=== PATIENT | male | born 1960 | race Caucasian/White ===

== ENCOUNTER 2017-02-11 17:36 | Inpatient (IN) | payer OTHER ==
[~2017-02-11] VITALS: Ht 152.4 cm; Wt 105.2 kg
[~2017-02-11 17:36] MED LIST: ACETAMINOPHEN325 M1 PO; ADVAIR HFA120 INHALA IH; ALBUTEROL0.63 MG/3 IH; ANTI-FUNGAL71 GM TP; ARGLAES POWDER10 GM TP; ASPIR 8181 M1 PO; ASPIRIN81 M2 PO; ATIVAN INTE2 MG/1 ML PO; ATIVAN0.5 MG PO; ATIVAN1 MG PO; ATROVENT 00.5 MG/2.5 PO; Advair 250/50 Diskus IH; Advair HFA 115/21 IH; Ancef,Kefzol IV; Aspirin Chewable PO; BISAC-EVAC10 MG PR; CELEXA20 MG PO; CHILD ASPIRIN81 M1 PO; CITALOPRAM HBR20 MG PO; CLONAZEPAM1 MG PO; CYANOCOBAL1000 MCG/2 IM; CYMBALTA30 MG PO; Cymbalta PO; DELTASONE20 M1 PO; DEPAKOTE ER500 MG PO; DEPAKOTE SPRIN125 MG PO; DEPAKOTE125 MG PO; DEPAKOTE500 MG PO; DIAMOX250 MG PO; DOXYCYCLINE HY100 M3 PO; DULCOLAX10 MG PR; DUONEB 2.5-0.5 M3 ML AEROSOL; DUONEB 2.5-0.5 M3 ML IH; DURAGESIC100 MCG TD; DURAGESIC50 MCG TD; Depakote PO; DuoNeb IH; Duragesic TD; FEOSOL325 MG PO; FERROUS SULFAT325 MG PO; FEVERALL650 M1 PR; FLEET ENEMA EX230 ML PR; FLEET ENEMA-AD118 ML PR; FLORASTOR250 MG PO; FUROSEMIDE40 MG PO; Feosol PO; GABAPENTIN100 MG PO; GABAPENTIN300 MG PO; HYOSCYAMINE0.125 M1 PO; HYOSCYAMINE0.125 MG PO; Haldol PO; IPRATR-ALBUTEROL3 ML IH; IPRATROPIU0.2 MG/1 M IH; IRON325 M1 PO; K-DUR20 MEQ PO; KENALOG,ARISTOC15 GM TP; KETOCONAZOLE60 GM TP; KLONOPIN PO; KLONOPIN0.5 M1 PO; KLONOPIN1 MG PO; KLOR-CON M2020 MEQ PO; Keflex PO; KlonoPIN PO; LACTINEX CHEWA1 EACH PO; LASIX20 MG PO; LASIX40 MG PO; LEVAQUIN500 MG PO; LEVAQUIN750 MG PO; LEVOFLOXACIN750 MG PO; LO-DOSE ASPIRIN81 M1 PO; LORAZEPAM0.5 MG PO; LOW DOSE ASPIRI81 M1 PO; LYRICA100 MG PO; MELATIN3 MG PO; MELATONIN3 MG PO; METOLAZONE2.5 MG PO; MILK OF MAGN PO; MILK OF MAGNESI10 ML PO; MIRALAX17 GM PO; MIRALAX255 GM PO; MORPHINE CON20 MG/M1 PO; MULTIVITAMIN1 EAC2 PO; Milk Of Magnesia,MOM PO; NIZORAL 2% CREA15 GM TP; OXYCODONE HCL E20 MG PO; OXYCODONE HCL10 MG PO; OXYCODONE HCL5 M1 PO; OXYCODONE HCL5 MG PO; OXYCONTIN10 MG PO; Omnicef PO; OxyCODONE PO; PHILLIPS'400 MG/5 M PO; POLYETHYLENE GL17 GM PO; POTASSIUM CHLO10 ME3 PO; PREDNISONE10 M1 PO; PREDNISONE10 MG PO; PREDNISONE20 MG PO; PREDNISONE5 MG PO; PROMETHAZINE HC25 M1 PO; PROVENTIL,2.5 MG/3 M IH; RISPERDAL1 MG PO; RISPERDAL2 MG PO; ROXICODONE5 MG PO; SAFE WASH210 ML MC; SENNA-GEN8.6 MG PO; SENNA8.6 MG PO; SEROQUEL12.5 MG PO; SEROQUEL50 MG PO; SPIRIVA1 INHALATI IH; SPIRONOLACTONE50 MG PO; STAVZOR500 MG PO; Santyl TP; TRAMADOL HCL50 MG PO; TYLENOL REGULA325 MG PO; Tylenol Extra Streng PO; ULTRAM50 MG PO; Ultram PO; VITAMIN D-32000 UNI1 PO; VITAMIN D1000 UNIT PO; Xopenex IH; predniSONE PO; risperDAL PO
[2017-02-11] MEDS ORDERED: CITALOPRAM HBR20 MG PO (18:00)
[2017-02-11] MEDS ORDERED: SEROQUEL50 MG PO (18:03)
[2017-02-11] MEDS ORDERED: KLOR-CON M2020 MEQ PO (18:04)
[2017-02-11] MEDS ORDERED: ARTIFICIAL TEAR15 M1 BOTH EYES ×2 (18:04→21:52)
[2017-02-11 18:23] LABS: EOSINOPHIL (%) 3.5 % (0-5); EOSINOPHIL COUNT 0.3 K/uL (0-0.3); HEMATOCRIT 41.9 % (38.0-50.0); IMMATURE GRANULOCYTE (%) 0.7 % (0.0-0.7); IMMATURE GRANULOCYTE COUNT 0.1 K/uL; LYMPHOCYTE COUNT 1.5 K/uL (1.0-2.8); MCH 25.3 PG (29.0-34.0); MCHC 28.4 G/DL (30.0-36.0); MONOCYTE (%) 7.3 % (3-12); MONOCYTE COUNT 0.7 K/uL (0-0.8); NEUTROPHIL (%) 72.2 % (45-76); PLATELET COUNT 291 K/uL (156-360); RBC DIS.WIDTH-CV 14.9 % (11.8-14.6); RED BLOOD COUNT 4.71 M/uL (4.00-5.50); WHITE BLOOD COUNT 9.7 K/uL (4.1-10.2)
[2017-02-11 18:31] LABS: CHLORIDE 84 mEq/L (99-109); POTASSIUM 3.9 mEq/L (3.7-5.4); SODIUM 141 mEq/L (136-147)
[2017-02-11 18:33] LABS: GLUCOSE 100 mg/dL (70-99)
[2017-02-11 18:35] LABS: TOTAL BILIRUBIN 0.2 mg/dL (0.0-1.0)
[2017-02-11 18:37] LABS: ALKALINE PHOSPHATASE 121 IU/L (3-129); GFR ESTIMATE (CALCULATED) > 59 mL/min/
[2017-02-11 18:38] LABS: UREA NITROGEN (BUN) 13 mg/dL (9-23)
[2017-02-11 18:44] LABS: TROP-I INTERPRETATION NEGATIVE; TROPONIN-I < 0.01 ng/mL (0.0-0.30)
[2017-02-11 19:00] LABS: CARBOXY HGB 1.8 % (0-5); METHEMOGLOBIN 0.9 % (0-1.5); PO2 73 mm Hg (80-100)
[2017-02-11 19:01] LABS: COMMENTS - BLOOD GASES C+; DEVICE VENTI-MASK; FI02 50 %; PCO2 > 123 mm Hg (35-45); SITE RR; pH 7.25 (7.35-7.45)
[2017-02-11 19:04] LABS: CARBON DIOXIDE (BICARBONATE) > 40.0 mEq/L (20-31)
[2017-02-11 21:35] VITALS: BP 136/84
[2017-02-11] MEDS ORDERED: FUROSEMIDE40 MG PO (21:46)
[2017-02-11] MEDS ORDERED: ATIVAN1 MG PO (21:47)
[2017-02-11] MEDS ORDERED: MORPHINE SULFAT15 M1 PO (21:49)
[2017-02-11] MEDS ORDERED: SENNA8.6 MG PO (21:52)
[2017-02-11] MEDS ORDERED: FLEET ENEMA-AD118 ML PR (22:00)
[2017-02-11] MEDS ORDERED: MILK OF MAGN PO (22:01)
[2017-02-11 23:30] VITALS: BP 120/60
[2017-02-12 04:15] VITALS: BP 138/87
[2017-02-12 07:18] LABS: EOSINOPHIL (%) 0 % (0-5); HEMATOCRIT 40.5 % (38.0-50.0); IMMATURE GRANULOCYTE (%) 1.1 % (0.0-0.7); IMMATURE GRANULOCYTE COUNT 0.1 K/uL; INSTRUMENT ABS NEUTROPHIL CT 9.4 K/uL; LYMPHOCYTE COUNT 0.7 K/uL (1.0-2.8); MCH 25.5 PG (29.0-34.0); MCHC 28.9 G/DL (30.0-36.0); MCV 88.2 FL (86-99); MEAN PLAT.VOLUME 11.7 uM^3 (9.0-12.4); MONOCYTE (%) 0.7 % (3-12); MONOCYTE COUNT 0.1 K/uL (0-0.8); NEUTROPHIL (%) 91.1 % (45-76); NEUTROPHIL COUNT 9.4 K/uL (1.8-6.4); PLATELET COUNT 257 K/uL (156-360); RBC DIS.WIDTH-CV 15.2 % (11.8-14.6); RBC DIS.WIDTH-SD 48.7 % (39-53); RED BLOOD COUNT 4.59 M/uL (4.00-5.50); WHITE BLOOD COUNT 10.3 K/uL (4.1-10.2)
[2017-02-12 07:30] VITALS: BP 143/88
[2017-02-12 07:32] LABS: ANION GAP ND MEQ/L (2-14); CHLORIDE 89 MEQ/L (99-109); GFR ESTIMATE (CALCULATED) > 59 mL/min/; GLUCOSE 146 mg/dL (70-99); SAMPLE HEMOLYSIS CHECK 0; SAMPLE ICTERIC CHECK 0; SAMPLE LIPEMIA CHECK 0; SODIUM 139 MEQ/L (136-147); UREA NITROGEN (BUN) 14 mg/dL (9-23)
[2017-02-12 07:38] LABS: CARBON DIOXIDE (BICARBONATE) > 40.0 MEQ/L (20-31); POTASSIUM 4.8 MEQ/L (3.7-5.4)
[2017-02-12 12:37] VITALS: BP 109/71
[2017-02-12 16:00] VITALS: BP 105/56
[2017-02-12 19:22] VITALS: BP 160/70
[2017-02-12 22:51] VITALS: BP 144/75
[2017-02-13 04:01] VITALS: BP 125/70
[2017-02-13 08:25] VITALS: BP 112/63
[2017-02-13 11:55] VITALS: BP 114/70
[2017-02-13 14:45] VITALS: BP 108/88
[2017-02-13 19:20] VITALS: BP 114/57
[2017-02-14 04:10] VITALS: BP 130/77
[2017-02-14 06:19] LABS: EOSINOPHIL (%) 0 % (0-5); HEMATOCRIT 36.5 % (38.0-50.0); IMMATURE GRANULOCYTE (%) 0.8 % (0.0-0.7); IMMATURE GRANULOCYTE COUNT 0.1 K/uL; INSTRUMENT ABS NEUTROPHIL CT 9.2 K/uL; LYMPHOCYTE COUNT 0.6 K/uL (1.0-2.8); MCH 25.3 PG (29.0-34.0); MCHC 28.8 G/DL (30.0-36.0); MEAN PLAT.VOLUME 10.9 uM^3 (9.0-12.4); MONOCYTE (%) 4.7 % (3-12); MONOCYTE COUNT 0.5 K/uL (0-0.8); NEUTROPHIL (%) 88.3 % (45-76); NEUTROPHIL COUNT 9.2 K/uL (1.8-6.4); PLATELET COUNT 266 K/uL (156-360); RBC DIS.WIDTH-CV 15.9 % (11.8-14.6); RBC DIS.WIDTH-SD 50.5 % (39-53); RED BLOOD COUNT 4.15 M/uL (4.00-5.50); WHITE BLOOD COUNT 10.4 K/uL (4.1-10.2)
[2017-02-14 06:56] LABS: ANION GAP ND MEQ/L (2-14); CHLORIDE 94 MEQ/L (99-109); GFR ESTIMATE (CALCULATED) > 59 mL/min/; GLUCOSE 163 mg/dL (70-99); POTASSIUM 4.7 MEQ/L (3.7-5.4); SAMPLE HEMOLYSIS CHECK 0; SAMPLE ICTERIC CHECK 0; SAMPLE LIPEMIA CHECK 0; SODIUM 139 MEQ/L (136-147); UREA NITROGEN (BUN) 20 mg/dL (9-23)
[2017-02-14 07:00] LABS: CARBON DIOXIDE (BICARBONATE) > 40.0 MEQ/L (20-31)
[2017-02-14 08:09] VITALS: BP 131/78
[2017-02-14 12:17] VITALS: BP 141/82
[2017-02-14 15:26] LABS: METH RESISTANT S AUREUS PCR NEGATIVE (NEGATIVE)
[2017-02-14 15:36] LABS: PROBE CHECK PASS; SPECIMEN PROCESSING CONTROL PASS
[2017-02-14 19:30] VITALS: BP 138/78
[2017-02-14 23:20] VITALS: BP 130/72
[2017-02-15 03:40] VITALS: BP 160/82
[2017-02-15 08:00] VITALS: BP 142/81
[2017-02-15 08:43] LABS: EOSINOPHIL (%) 0 % (0-5); HEMATOCRIT 38.7 % (38.0-50.0); IMMATURE GRANULOCYTE (%) 1.1 % (0.0-0.7); IMMATURE GRANULOCYTE COUNT 0.1 K/uL; INSTRUMENT ABS NEUTROPHIL CT 8.2 K/uL; LYMPHOCYTE COUNT 0.6 K/uL (1.0-2.8); MCH 24.9 PG (29.0-34.0); MCHC 28.7 G/DL (30.0-36.0); MCV 86.8 FL (86-99); MEAN PLAT.VOLUME 10.6 uM^3 (9.0-12.4); MONOCYTE (%) 6.4 % (3-12); MONOCYTE COUNT 0.6 K/uL (0-0.8); NEUTROPHIL (%) 85.9 % (45-76); NEUTROPHIL COUNT 8.2 K/uL (1.8-6.4); PLATELET COUNT 261 K/uL (156-360); RBC DIS.WIDTH-CV 15.8 % (11.8-14.6); RBC DIS.WIDTH-SD 49.7 % (39-53); RED BLOOD COUNT 4.46 M/uL (4.00-5.50); WHITE BLOOD COUNT 9.6 K/uL (4.1-10.2)
[2017-02-15 09:31] LABS: ANION GAP 4 MEQ/L (2-14); CHLORIDE 97 MEQ/L (99-109); GFR ESTIMATE (CALCULATED) > 59 mL/min/; GLUCOSE 138 mg/dL (70-99); POTASSIUM 4.8 MEQ/L (3.7-5.4); SAMPLE HEMOLYSIS CHECK 0; SAMPLE ICTERIC CHECK 0; SAMPLE LIPEMIA CHECK 0; SODIUM 141 MEQ/L (136-147); UREA NITROGEN (BUN) 24 mg/dL (9-23)
[2017-02-15 11:51] VITALS: BP 135/94
[2017-02-15 15:55] VITALS: BP 127/101
[2017-02-15 20:53] VITALS: BP 166/94
[2017-02-15 23:59] VITALS: BP 132/86
[2017-02-16 03:42] VITALS: BP 133/71
[2017-02-16 07:23] LABS: EOSINOPHIL (%) 0 % (0-5); HEMATOCRIT 39.8 % (38.0-50.0); IMMATURE GRANULOCYTE (%) 1.3 % (0.0-0.7); IMMATURE GRANULOCYTE COUNT 0.1 K/uL; INSTRUMENT ABS NEUTROPHIL CT 7.9 K/uL; MCH 25.2 PG (29.0-34.0); MCHC 28.9 G/DL (30.0-36.0); MCV 87.3 FL (86-99); MEAN PLAT.VOLUME 10.6 uM^3 (9.0-12.4); MONOCYTE (%) 11.5 % (3-12); MONOCYTE COUNT 1.2 K/uL (0-0.8); NEUTROPHIL (%) 77.5 % (45-76); NEUTROPHIL COUNT 7.9 K/uL (1.8-6.4); PLATELET COUNT 259 K/uL (156-360); RBC DIS.WIDTH-CV 15.7 % (11.8-14.6); RBC DIS.WIDTH-SD 49.8 % (39-53); RED BLOOD COUNT 4.56 M/uL (4.00-5.50); WHITE BLOOD COUNT 10.2 K/uL (4.1-10.2)
[2017-02-16 07:44] LABS: ANION GAP ND MEQ/L (2-14); CHLORIDE 95 MEQ/L (99-109); GFR ESTIMATE (CALCULATED) > 59 mL/min/; GLUCOSE 105 mg/dL (70-99); POTASSIUM 4.7 MEQ/L (3.7-5.4); SAMPLE HEMOLYSIS CHECK 0; SAMPLE ICTERIC CHECK 0; SAMPLE LIPEMIA CHECK 0; SODIUM 141 MEQ/L (136-147); UREA NITROGEN (BUN) 22 mg/dL (9-23)
[2017-02-16 07:48] LABS: CARBON DIOXIDE (BICARBONATE) > 40.0 MEQ/L (20-31)
[2017-02-16 08:00] VITALS: BP 138/70
[2017-02-16 15:11] VITALS: BP 103/53
[2017-02-16 16:52] VITALS: BP 133/70
[2017-02-16 19:10] VITALS: BP 131/70
[2017-02-17 00:15] VITALS: BP 132/74
[2017-02-17 04:00] VITALS: BP 137/64
[2017-02-17 06:53] LABS: EOSINOPHIL (%) 0.1 % (0-5); HEMATOCRIT 39.8 % (38.0-50.0); IMMATURE GRANULOCYTE (%) 1.3 % (0.0-0.7); IMMATURE GRANULOCYTE COUNT 0.2 K/uL; INSTRUMENT ABS NEUTROPHIL CT 9.7 K/uL; LYMPHOCYTE COUNT 1.1 K/uL (1.0-2.8); MCH 25.3 PG (29.0-34.0); MCHC 29.4 G/DL (30.0-36.0); MEAN PLAT.VOLUME 10.8 uM^3 (9.0-12.4); MONOCYTE (%) 9.9 % (3-12); MONOCYTE COUNT 1.2 K/uL (0-0.8); NEUTROPHIL (%) 79.3 % (45-76); NEUTROPHIL COUNT 9.7 K/uL (1.8-6.4); PLATELET COUNT 257 K/uL (156-360); RBC DIS.WIDTH-CV 16.1 % (11.8-14.6); RBC DIS.WIDTH-SD 49.7 % (39-53); RED BLOOD COUNT 4.63 M/uL (4.00-5.50); WHITE BLOOD COUNT 12.3 K/uL (4.1-10.2)
[2017-02-17 07:41] LABS: ANION GAP 7 MEQ/L (2-14); CHLORIDE 95 MEQ/L (99-109); GFR ESTIMATE (CALCULATED) > 59 mL/min/; GLUCOSE 116 mg/dL (70-99); POTASSIUM 4.6 MEQ/L (3.7-5.4); SAMPLE HEMOLYSIS CHECK 0; SAMPLE ICTERIC CHECK 0; SAMPLE LIPEMIA CHECK 0; SODIUM 142 MEQ/L (136-147); UREA NITROGEN (BUN) 21 mg/dL (9-23)
[2017-02-17 09:59] VITALS: BP 120/71
[2017-02-17 20:00] VITALS: BP 118/73
[2017-02-17 23:20] VITALS: BP 143/79
[2017-02-18 03:52] VITALS: BP 139/81
[2017-02-18 06:43] LABS: EOSINOPHIL (%) 0.1 % (0-5); IMMATURE GRANULOCYTE (%) 1.2 % (0.0-0.7); IMMATURE GRANULOCYTE COUNT 0.1 K/uL; INSTRUMENT ABS NEUTROPHIL CT 9.8 K/uL; MCH 25.1 PG (29.0-34.0); MCV 86.3 FL (86-99); MEAN PLAT.VOLUME 10.9 uM^3 (9.0-12.4); MONOCYTE (%) 8.4 % (3-12); NEUTROPHIL (%) 81.5 % (45-76); NEUTROPHIL COUNT 9.8 K/uL (1.8-6.4); PLATELET COUNT 275 K/uL (156-360); RBC DIS.WIDTH-CV 16.1 % (11.8-14.6); RBC DIS.WIDTH-SD 50.7 % (39-53); RED BLOOD COUNT 4.75 M/uL (4.00-5.50)
[2017-02-18 07:31] LABS: ANION GAP ND MEQ/L (2-14); CHLORIDE 94 MEQ/L (99-109); GFR ESTIMATE (CALCULATED) > 59 mL/min/; GLUCOSE 105 mg/dL (70-99); POTASSIUM 4.6 MEQ/L (3.7-5.4); SAMPLE HEMOLYSIS CHECK 0; SAMPLE ICTERIC CHECK 0; SAMPLE LIPEMIA CHECK 0; SODIUM 142 MEQ/L (136-147); UREA NITROGEN (BUN) 22 mg/dL (9-23)
[2017-02-18 07:36] LABS: CARBON DIOXIDE (BICARBONATE) > 40.0 MEQ/L (20-31)
[2017-02-18 08:34] VITALS: BP 121/71
[2017-02-18 11:49] VITALS: BP 122/70
[2017-02-18 17:58] VITALS: BP 141/85
[2017-02-18 20:30] VITALS: BP 138/84
[2017-02-19] VITALS (7 sets, daily range): BP systolic 109–141; BP diastolic 62–84
[2017-02-19 07:35] LABS: EOSINOPHIL (%) 0 % (0-5); HEMATOCRIT 38.9 % (38.0-50.0); IMMATURE GRANULOCYTE (%) 1.1 % (0.0-0.7); IMMATURE GRANULOCYTE COUNT 0.2 K/uL; LYMPHOCYTE COUNT 0.7 K/uL (1.0-2.8); MCV 86.1 FL (86-99); MEAN PLAT.VOLUME 10.8 uM^3 (9.0-12.4); MONOCYTE (%) 5.6 % (3-12); MONOCYTE COUNT 0.8 K/uL (0-0.8); NEUTROPHIL (%) 87.8 % (45-76); PLATELET COUNT 258 K/uL (156-360); RBC DIS.WIDTH-CV 16.3 % (11.8-14.6); RBC DIS.WIDTH-SD 51.3 % (39-53); RED BLOOD COUNT 4.52 M/uL (4.00-5.50); WHITE BLOOD COUNT 13.6 K/uL (4.1-10.2)
[2017-02-19 08:25] LABS: ANION GAP 5 MEQ/L (2-14); CHLORIDE 95 MEQ/L (99-109); GFR ESTIMATE (CALCULATED) > 59 mL/min/; GLUCOSE 113 mg/dL (70-99); POTASSIUM 5.1 MEQ/L (3.7-5.4); SAMPLE HEMOLYSIS CHECK 0; SAMPLE ICTERIC CHECK 0; SAMPLE LIPEMIA CHECK 0; SODIUM 140 MEQ/L (136-147); UREA NITROGEN (BUN) 22 mg/dL (9-23)
[2017-02-20 04:10] VITALS: BP 122/60
[2017-02-20 07:18] LABS: EOSINOPHIL (%) 0.1 % (0-5); HEMATOCRIT 38.6 % (38.0-50.0); IMMATURE GRANULOCYTE (%) 0.9 % (0.0-0.7); IMMATURE GRANULOCYTE COUNT 0.1 K/uL; INSTRUMENT ABS NEUTROPHIL CT 11.6 K/uL; LYMPHOCYTE COUNT 0.7 K/uL (1.0-2.8); MCH 25.4 PG (29.0-34.0); MCV 87.5 FL (86-99); MEAN PLAT.VOLUME 10.9 uM^3 (9.0-12.4); MONOCYTE COUNT 0.8 K/uL (0-0.8); NEUTROPHIL (%) 87.3 % (45-76); NEUTROPHIL COUNT 11.6 K/uL (1.8-6.4); PLATELET COUNT 253 K/uL (156-360); RBC DIS.WIDTH-CV 16.2 % (11.8-14.6); RBC DIS.WIDTH-SD 52.3 % (39-53); RED BLOOD COUNT 4.41 M/uL (4.00-5.50); WHITE BLOOD COUNT 13.3 K/uL (4.1-10.2)
[2017-02-20 08:00] LABS: ANION GAP ND MEQ/L (2-14); CHLORIDE 90 MEQ/L (99-109); GFR ESTIMATE (CALCULATED) > 59 mL/min/; GLUCOSE 108 mg/dL (70-99); POTASSIUM 4.7 MEQ/L (3.7-5.4); SAMPLE HEMOLYSIS CHECK 0; SAMPLE ICTERIC CHECK 0; SAMPLE LIPEMIA CHECK 0; SODIUM 136 MEQ/L (136-147); UREA NITROGEN (BUN) 27 mg/dL (9-23)
[2017-02-20 08:01] LABS: CARBON DIOXIDE (BICARBONATE) > 40.0 MEQ/L (20-31)
[2017-02-20 08:45] VITALS: BP 98/79
[2017-02-20 12:00] VITALS: BP 105/67
[2017-02-20 16:23] VITALS: BP 151/81
[2017-02-20 19:45] VITALS: BP 119/82
[2017-02-20 23:00] VITALS: BP 125/75
[2017-02-21 03:15] VITALS: BP 115/65
[2017-02-21 07:00] LABS: EOSINOPHIL (%) 0.1 % (0-5); HEMATOCRIT 37.6 % (38.0-50.0); IMMATURE GRANULOCYTE COUNT 0.1 K/uL; INSTRUMENT ABS NEUTROPHIL CT 9.2 K/uL; LYMPHOCYTE COUNT 1.2 K/uL (1.0-2.8); MCH 25.5 PG (29.0-34.0); MCHC 30.1 G/DL (30.0-36.0); MCV 84.9 FL (86-99); MONOCYTE (%) 8.9 % (3-12); NEUTROPHIL (%) 79.3 % (45-76); NEUTROPHIL COUNT 9.2 K/uL (1.8-6.4); PLATELET COUNT 254 K/uL (156-360); RBC DIS.WIDTH-CV 16.3 % (11.8-14.6); RBC DIS.WIDTH-SD 50.3 % (39-53); RED BLOOD COUNT 4.43 M/uL (4.00-5.50); WHITE BLOOD COUNT 11.5 K/uL (4.1-10.2)
[2017-02-21 07:30] LABS: ANION GAP ND MEQ/L (2-14); CHLORIDE 94 MEQ/L (99-109); GFR ESTIMATE (CALCULATED) > 59 mL/min/; GLUCOSE 96 mg/dL (70-99); POTASSIUM 4.6 MEQ/L (3.7-5.4); SAMPLE HEMOLYSIS CHECK 0; SAMPLE ICTERIC CHECK 0; SAMPLE LIPEMIA CHECK 0; SODIUM 139 MEQ/L (136-147); UREA NITROGEN (BUN) 25 mg/dL (9-23)
[2017-02-21 07:32] LABS: CARBON DIOXIDE (BICARBONATE) > 40.0 MEQ/L (20-31)
[2017-02-21 09:30] VITALS: BP 132/83
[2017-02-21 12:45] VITALS: BP 157/83
[2017-02-21] MEDS ORDERED: ADVAIR HFA120 INHALA IH (13:10)
[2017-02-21] MEDS ORDERED: MORPHINE SULFAT15 M1 PO (13:11)
[2017-02-21] MEDS ORDERED: ATIVAN1 MG PO (13:11)
[2017-02-21] MEDS ORDERED: PREDNISONE10 MG PO (13:11)
[2017-02-21] MEDS ORDERED: MORPHINE CON20 MG/M1 PO (13:11)
[2017-02-21 14:35] VITALS: BP 110/77
== END 2017-02-21 15:12 | DRG 189 ==
LOC: EME → EDBD 17:36 → EME 17:36 → EDOF 20:00 → 4EAST 20:00 → EDOF 20:06 → 4EAST 21:56
PROVIDERS: Emergency Medicine; Family Medicine
DX: J96.21 Acute and chronic respiratory failure with hypoxia (principal); J44.0 Chronic obstructive pulmonary disease with (acute) lower respiratory infection; J18.9 Pneumonia, unspecified organism; J44.1 Chronic obstructive pulmonary disease with (acute) exacerbation; E87.2 Acidosis; J98.19 Other pulmonary collapse; Z68.42 Body mass index [BMI] 45.0-49.9, adult; J96.22 Acute and chronic respiratory failure with hypercapnia; G47.33 Obstructive sleep apnea (adult) (pediatric); F41.9 Anxiety disorder, unspecified; M06.9 Rheumatoid arthritis, unspecified; G89.4 Chronic pain syndrome; G40.909 Epilepsy, unspecified, not intractable, without status epilepticus; F31.9 Bipolar disorder, unspecified; K59.00 Constipation, unspecified; Z66 Do not resuscitate; E66.9 Obesity, unspecified; Z88.0 Allergy status to penicillin; Z88.2 Allergy status to sulfonamides; Z88.1 Allergy status to other antibiotic agents; Z86.711 Personal history of pulmonary embolism; Z86.718 Personal history of other venous thrombosis and embolism; Z95.828 Presence of other vascular implants and grafts; Z87.891 Personal history of nicotine dependence
CPT/HCPCS: 36600; 71010; 80048; 80053; 80202; 82803; 83605; 83880; 84484; 85025; 87040; 87641; 93005; 94640; 94640 76; 94760; 94799; 97530 GP; 99202; 99281; 99285; J1650; J1956; J2930; J3370; J7512

== ENCOUNTER 2017-03-08 18:18 | Emergency (ER) | payer OTHER ==
[~2017-03-08] VITALS: Ht 152.4 cm; Wt 112.0 kg
[~2017-03-08 18:18] MED LIST changes: +ARTIFICIAL TEAR15 M1 BOTH EYES; +MORPHINE SULFAT15 M1 PO
[2017-03-08 19:24] LABS: EOSINOPHIL (%) 0.6 % (0-5); EOSINOPHIL COUNT 0.1 K/uL (0-0.3); HEMATOCRIT 32.2 % (38.0-50.0); IMMATURE GRANULOCYTE (%) 0.9 % (0.0-0.7); IMMATURE GRANULOCYTE COUNT 0.1 K/uL; INSTRUMENT ABS NEUTROPHIL CT 8.4 K/uL; LYMPHOCYTE COUNT 0.7 K/uL (1.0-2.8); MCH 25.8 PG (29.0-34.0); MCHC 29.8 G/DL (30.0-36.0); MCV 86.6 FL (86-99); MEAN PLAT.VOLUME 10.2 uM^3 (9.0-12.4); MONOCYTE (%) 3.8 % (3-12); MONOCYTE COUNT 0.4 K/uL (0-0.8); NEUTROPHIL (%) 87.3 % (45-76); NEUTROPHIL COUNT 8.4 K/uL (1.8-6.4); PLATELET COUNT 203 K/uL (156-360); RBC DIS.WIDTH-CV 16.9 % (11.8-14.6); RBC DIS.WIDTH-SD 53.3 % (39-53); RED BLOOD COUNT 3.72 M/uL (4.00-5.50); WHITE BLOOD COUNT 9.6 K/uL (4.1-10.2)
[2017-03-08 19:34] LABS: CHLORIDE 92 mEq/L (99-109); POTASSIUM 4.1 mEq/L (3.7-5.4); SODIUM 139 mEq/L (136-147)
[2017-03-08 19:36] LABS: GLUCOSE 161 mg/dL (70-99)
[2017-03-08 19:38] LABS: ANION GAP 7 MEQ/L (2-14); TOTAL BILIRUBIN 0.1 mg/dL (0.0-1.0)
[2017-03-08 19:40] LABS: ALKALINE PHOSPHATASE 75 IU/L (3-129); GFR ESTIMATE (CALCULATED) > 59 mL/min/
[2017-03-08 19:41] LABS: UREA NITROGEN (BUN) 15 mg/dL (9-23)
[2017-03-08 19:43] LABS: LIPASE 30 U/L (1.0-51.0)
[2017-03-08 23:17] LABS: ADD MIUA? YES; BILIRUBIN NEGATIVE; BLOOD SMALL; COLOR COLORLESS ((YELLOW)); GLUCOSE (STRIP) NEGATIVE; KETONES NEGATIVE; LEUKOCYTES NEGATIVE; NITRITE NEGATIVE; PROTEIN (STRIP) NEGATIVE; SPECIFIC GRAVITY 1.011 (1.000-1.030); UROBILINOGEN 0.2 MG/DL (0.2-1.0)
[2017-03-08] MEDS ORDERED: FLEET ENEMA-AD118 ML PR (23:20)
[2017-03-08 23:28] LABS: BACTERIA NONE SEEN /HPF; EPITHELIAL CELLS NONE SEEN /HPF; MUCUS TRACE /LPF; RED BLOOD CELLS 0-5 /HPF (0-5); UCUL ADDED? NO; WHITE BLOOD CELLS 0-5 /HPF (0-5)
[2017-03-09 00:55] VITALS: BP 136/92
== END 2017-03-09 01:16 ==
LOC: EME → EDBD 18:18 → EME 03-09 01:16
PROVIDERS: Emergency Medicine
DX: K59.00 Constipation, unspecified (principal); R10.9 Unspecified abdominal pain; J45.909 Unspecified asthma, uncomplicated; J44.9 Chronic obstructive pulmonary disease, unspecified; I50.9 Heart failure, unspecified; Z87.891 Personal history of nicotine dependence
CPT/HCPCS: 74177; 80053; 81003; 83690; 85025; 99281; 99285; J2060; J3010; J7040

== ENCOUNTER 2017-04-07 02:53 | Inpatient (IN) | payer OTHER ==
[~2017-04-07] VITALS: Ht 152.4 cm; Wt 116.8 kg
[2017-04-07] VITALS (7 sets, daily range): BP systolic 99–183; BP diastolic 59–110
[2017-04-07 03:51] LABS: HEMATOCRIT 37.4 % (38.0-50.0); MCH 25.2 PG (29.0-34.0); MCHC 27.5 G/DL (30.0-36.0); MCV 91.7 FL (86-99); PLATELET COUNT 265 K/uL (156-360); RBC DIS.WIDTH-CV 16.2 % (11.8-14.6); RED BLOOD COUNT 4.08 M/uL (4.00-5.50); WHITE BLOOD COUNT 10.1 K/uL (4.1-10.2)
[2017-04-07 03:56] LABS: CHLORIDE 89 mEq/L (99-109); SODIUM 144 mEq/L (136-147)
[2017-04-07 03:58] LABS: GLUCOSE 125 mg/dL (70-99)
[2017-04-07 03:59] LABS: ANION GAP 9 MEQ/L (2-14)
[2017-04-07 04:00] LABS: CARBON DIOXIDE (BICARBONATE) > 40.0 mEq/L (20-31); TOTAL BILIRUBIN 0.1 mg/dL (0.0-1.0)
[2017-04-07 04:00] LABS: CARBOXY HGB 1.2 % (0-5); METHEMOGLOBIN 0.9 % (0-1.5)
[2017-04-07 04:01] LABS: ALKALINE PHOSPHATASE 85 IU/L (3-129)
[2017-04-07 04:02] LABS: GFR ESTIMATE (CALCULATED) > 59 mL/min/
[2017-04-07 04:02] LABS: COMMENTS - BLOOD GASES A+C+; DEVICE 850; FI02 100 %; MODE SPONT; PCO2 > 128 mm Hg (35-45); PEEP 5 CM/H20; PO2 242 mm Hg (80-100); PRES. SUPPORT 10 CM/H2O; SITE RR; TOTAL RESP RATE 21 resp/min; pH 7.17 (7.35-7.45)
[2017-04-07 04:03] LABS: UREA NITROGEN (BUN) 12 mg/dL (9-23)
[2017-04-07 04:05] LABS: LIPASE 18 U/L (1.0-51.0); PROTHROMBIN TIME 9.7 (9.2-11.2); PTT 28.7 (25-32)
[2017-04-07 04:06] LABS: TROP-I INTERPRETATION NEGATIVE; TROPONIN-I 0.01 ng/mL (0.0-0.30)
[2017-04-07 04:48] LABS: ADD MIUA? YES; BILIRUBIN NEGATIVE; BLOOD MODERATE; COLOR STRAW ((YELLOW)); GLUCOSE (STRIP) NEGATIVE; KETONES NEGATIVE; LEUKOCYTES NEGATIVE; NITRITE NEGATIVE; PROTEIN (STRIP) 30; SPECIFIC GRAVITY 1.009 (1.000-1.030); UROBILINOGEN 0.2 MG/DL (0.2-1.0)
[2017-04-07 04:59] LABS: BACTERIA RARE /HPF; EPITHELIAL CELLS NONE SEEN /HPF; MUCUS NONE SEEN /LPF; RED BLOOD CELLS 0-5 /HPF (0-5); UCUL ADDED? NO; WHITE BLOOD CELLS 0-5 /HPF (0-5)
[2017-04-07 08:05] LABS: HEMOGLOBIN 10.5 (12.5-16.6); PCO2 69 mm Hg (35-45); PO2 200 mm Hg (80-100); pH 7.48 (7.35-7.45)
[2017-04-07 08:06] LABS: BASE EXCESS 24.2 mEq/L (-3 to +3); BICARBONATE 51.4 mEq/L (22-26); COMMENTS - BLOOD GASES C+; DEVICE 840; FI02 100 %; MECHANICAL RATE 18 resp/min; MODE AC; PEEP 10 CM/H20; SITE ALINE; TIDAL VOLUME 500 ML; TOTAL RESP RATE 18 resp/min
[2017-04-07 09:30] LABS: METH RESISTANT S AUREUS PCR NEGATIVE (NEGATIVE)
[2017-04-07 09:32] LABS: PROBE CHECK PASS; SPECIMEN PROCESSING CONTROL PASS
[2017-04-07 10:07] LABS: BASE EXCESS 24.6 mEq/L (-3 to +3); BICARBONATE 51.7 mEq/L (22-26); CARBOXY HGB 1.2 % (0-5); METHEMOGLOBIN 1.9 % (0-1.5); PCO2 71 mm Hg (35-45); pH 7.47 (7.35-7.45)
[2017-04-07 10:08] LABS: COMMENTS - BLOOD GASES C+; DEVICE 840 VENTILATOR; FI02 50 %; INSPIRATION TIME 0.66 seconds; MECHANICAL RATE 24 resp/min; MODE AC/VC+; PO2 61 mm Hg (80-100); SITE RT RADIAL ALINE; TIDAL VOLUME 350 ML; TOTAL RESP RATE 24 resp/min
[2017-04-07 10:09] LABS: PEEP 8 CM/H20
[2017-04-07 10:29] LABS: MAGNESIUM 2.4 mg/dL (1.3-2.7)
[2017-04-07] MEDS ORDERED: FLEET ENEMA-AD118 ML PR (10:44)
[2017-04-07] MEDS ORDERED: IPRATROPIU0.2 MG/1 M IH (10:45)
[2017-04-07] MEDS ORDERED: OCEAN NASAL 0.645 ML BOTH NARES (10:45)
[2017-04-07] MEDS ORDERED: FLONASE16 G1 BOTH NARES (10:46)
[2017-04-07] MEDS ORDERED: PREDNISONE50 MG PO (10:46)
[2017-04-07] MEDS ORDERED: SEROQUEL50 MG PO (10:47)
[2017-04-07] MEDS ORDERED: FUROSEMIDE40 MG PO (10:50)
[2017-04-07] MEDS ORDERED: KLOR-CON SPRIN10 MEQ PO (10:50)
[2017-04-07] MEDS ORDERED: SENNA8.6 MG PO (10:52)
[2017-04-07] MEDS ORDERED: ASMANEX HFA13 G1 IH (10:52)
[2017-04-07] MEDS ORDERED: CITALOPRAM HBR20 MG PO (10:52)
[2017-04-07] MEDS ORDERED: ARYMO ER15 MG PO (10:53)
[2017-04-07] MEDS ORDERED: ALBUTEROL2.5 MG/3 M IH (10:54)
[2017-04-07] MEDS ORDERED: ACETAMINOPHEN325 M1 PO (10:55)
[2017-04-07] MEDS ORDERED: MILK OF MAGN PO (10:56)
[2017-04-07] MEDS ORDERED: LORAZEPAM1 MG PO (10:56)
[2017-04-07] MEDS ORDERED: DULCOLAX10 MG PR (10:57)
[2017-04-07 16:30] LABS: BASE EXCESS 17.8 mEq/L (-3 to +3); CARBOXY HGB 0.9 % (0-5); METHEMOGLOBIN 1.4 % (0-1.5); PCO2 71 mm Hg (35-45); PO2 68 mm Hg (80-100); pH 7.41 (7.35-7.45)
[2017-04-07 16:31] LABS: COMMENTS - BLOOD GASES C+; CONTINUOUS POS AIRWAY PRESSURE 8 cm H2O; DEVICE 840 VENTILATOR; FI02 55 %; MODE SPONT; PRES. SUPPORT 15 CM/H2O; SITE RT RADIAL ALINE; TOTAL RESP RATE 16 resp/min
[2017-04-07 23:42] LABS: POINT-OF-CARE METER ID UU14174217
[2017-04-08] VITALS (16 sets, daily range): BP systolic 105–174; BP diastolic 57–107
[2017-04-08 06:52] LABS: ANION GAP 8 MEQ/L (2-14); CHLORIDE 91 MEQ/L (99-109); GFR ESTIMATE (CALCULATED) > 59 mL/min/; GLUCOSE 166 mg/dL (70-99); MAGNESIUM 2.1 mg/dl (1.3-2.7); POTASSIUM 4.1 MEQ/L (3.7-5.4); SAMPLE HEMOLYSIS CHECK 2; SAMPLE ICTERIC CHECK 0; SAMPLE LIPEMIA CHECK 0; SODIUM 139 MEQ/L (136-147); UREA NITROGEN (BUN) 18 mg/dL (9-23)
[2017-04-08 06:54] LABS: EOSINOPHIL (%) 0 % (0-5); HEMATOCRIT 29.5 % (38.0-50.0); IMMATURE GRANULOCYTE (%) 0.7 % (0.0-0.7); IMMATURE GRANULOCYTE COUNT 0.1 K/uL; INSTRUMENT ABS NEUTROPHIL CT 10.8 K/uL; LYMPHOCYTE COUNT 0.8 K/uL (1.0-2.8); MCH 26.2 PG (29.0-34.0); MCHC 30.5 G/DL (30.0-36.0); MEAN PLAT.VOLUME 11.6 uM^3 (9.0-12.4); MONOCYTE (%) 5.3 % (3-12); MONOCYTE COUNT 0.7 K/uL (0-0.8); NEUTROPHIL (%) 87.3 % (45-76); NEUTROPHIL COUNT 10.8 K/uL (1.8-6.4); PLATELET COUNT 278 K/uL (156-360); RBC DIS.WIDTH-CV 17.4 % (11.8-14.6); RED BLOOD COUNT 3.44 M/uL (4.00-5.50); WHITE BLOOD COUNT 12.4 K/uL (4.1-10.2)
[2017-04-08 06:56] LABS: MCV 85.8 FL (86-99)
[2017-04-08 10:15] LABS: BICARBONATE 44.5 mEq/L (22-26); CARBOXY HGB 1.5 % (0-5); METHEMOGLOBIN 1.3 % (0-1.5); pH 7.45 (7.35-7.45)
[2017-04-08 10:16] LABS: DEVICE HFNC; FI02 100 %; O2 FLOW 30 L/MIN; PCO2 64 mm Hg (35-45); PO2 49 mm Hg (80-100); SITE LR; TOTAL RESP RATE 26 resp/min
[2017-04-08 10:31] LABS: BASE EXCESS 18.2 mEq/L (-3 to +3); BICARBONATE 45.8 mEq/L (22-26); CARBOXY HGB 0.7 % (0-5); COMMENTS - BLOOD GASES NEG A+C+; DEVICE HHFNC; FI02 100 %; METHEMOGLOBIN 1.7 % (0-1.5); O2 FLOW 30 L/MIN; PCO2 74 mm Hg (35-45); PO2 186 mm Hg (80-100); SITE RR; TOTAL RESP RATE 26 resp/min
[2017-04-09] VITALS (14 sets, daily range): BP systolic 112–151; BP diastolic 66–123
[2017-04-09 06:45] LABS: EOSINOPHIL (%) 0 % (0-5); IMMATURE GRANULOCYTE (%) 0.5 % (0.0-0.7); IMMATURE GRANULOCYTE COUNT 0.1 K/uL; INSTRUMENT ABS NEUTROPHIL CT 9.6 K/uL; LYMPHOCYTE COUNT 1.1 K/uL (1.0-2.8); MCH 25.9 PG (29.0-34.0); MCHC 29.7 G/DL (30.0-36.0); MCV 87.5 FL (86-99); MEAN PLAT.VOLUME 11.3 uM^3 (9.0-12.4); MONOCYTE (%) 8.3 % (3-12); NEUTROPHIL (%) 81.7 % (45-76); NEUTROPHIL COUNT 9.6 K/uL (1.8-6.4); PLATELET COUNT 227 K/uL (156-360); RBC DIS.WIDTH-CV 17.7 % (11.8-14.6); RBC DIS.WIDTH-SD 56.9 % (39-53); RED BLOOD COUNT 3.43 M/uL (4.00-5.50); WHITE BLOOD COUNT 11.7 K/uL (4.1-10.2)
[2017-04-09 07:18] LABS: ANION GAP 6 MEQ/L (2-14); CHLORIDE 97 MEQ/L (99-109); GFR ESTIMATE (CALCULATED) > 59 mL/min/; MAGNESIUM 2.3 mg/dl (1.3-2.7); POTASSIUM 4.3 MEQ/L (3.7-5.4); SAMPLE HEMOLYSIS CHECK 0; SAMPLE ICTERIC CHECK 0; SAMPLE LIPEMIA CHECK 0; SODIUM 141 MEQ/L (136-147); UREA NITROGEN (BUN) 20 mg/dL (9-23)
[2017-04-09 07:21] LABS: GLUCOSE 113 mg/dL (70-99)
[2017-04-09 08:35] LABS: ALKALINE PHOSPHATASE 60 IU/L (3-129); TOTAL BILIRUBIN 0.2 MG/DL (0.0-1.0)
[2017-04-09 11:36] LABS: BASE EXCESS 16.6 mEq/L (-3 to +3); BICARBONATE 44.5 mEq/L (22-26); CARBOXY HGB 1.4 % (0-5); METHEMOGLOBIN 1.7 % (0-1.5); PCO2 77 mm Hg (35-45); pH 7.37 (7.35-7.45)
[2017-04-09 11:39] LABS: COMMENTS - BLOOD GASES A+C+; O2 FLOW 30 L/MIN; PO2 76 mm Hg (80-100); SITE RR
[2017-04-09 11:40] LABS: DEVICE HHFNC; FI02 60 %
[2017-04-10] VITALS (14 sets, daily range): BP systolic 96–146; BP diastolic 56–114
[2017-04-10 07:27] LABS: EOSINOPHIL (%) 0 % (0-5); HEMATOCRIT 30.5 % (38.0-50.0); IMMATURE GRANULOCYTE (%) 0.9 % (0.0-0.7); IMMATURE GRANULOCYTE COUNT 0.1 K/uL; INSTRUMENT ABS NEUTROPHIL CT 8.6 K/uL; MCH 25.8 PG (29.0-34.0); MCHC 28.9 G/DL (30.0-36.0); MCV 89.4 FL (86-99); MEAN PLAT.VOLUME 11.7 uM^3 (9.0-12.4); MONOCYTE (%) 11.6 % (3-12); MONOCYTE COUNT 1.3 K/uL (0-0.8); NEUTROPHIL (%) 78.8 % (45-76); NEUTROPHIL COUNT 8.6 K/uL (1.8-6.4); PLATELET COUNT 209 K/uL (156-360); RBC DIS.WIDTH-CV 17.5 % (11.8-14.6); RBC DIS.WIDTH-SD 57.1 % (39-53); RED BLOOD COUNT 3.41 M/uL (4.00-5.50)
[2017-04-10 07:59] LABS: ANION GAP 9 MEQ/L (2-14); CHLORIDE 99 MEQ/L (99-109); GFR ESTIMATE (CALCULATED) > 59 mL/min/; GLUCOSE 105 mg/dL (70-99); MAGNESIUM 2.4 mg/dl (1.3-2.7); POTASSIUM 4.2 MEQ/L (3.7-5.4); SAMPLE HEMOLYSIS CHECK 0; SAMPLE ICTERIC CHECK 0; SAMPLE LIPEMIA CHECK 0; SODIUM 144 MEQ/L (136-147); UREA NITROGEN (BUN) 24 mg/dL (9-23)
[2017-04-11] VITALS (24 sets, daily range): BP systolic 80–173; BP diastolic 32–100
[2017-04-11 00:19] LABS: BASE EXCESS 11.2 mEq/L (-3 to +3); CARBOXY HGB 1.4 % (0-5); METHEMOGLOBIN 1.6 % (0-1.5); PO2 87 mm Hg (80-100)
[2017-04-11 00:20] LABS: COMMENTS - BLOOD GASES C+A+; DEVICE COOL AEROSOL; FI02 100 %; O2 FLOW 15 L/MIN; PCO2 118 mm Hg (35-45); SITE LR; TOTAL RESP RATE 19 resp/min; pH 7.17 (7.35-7.45)
[2017-04-11 01:05] LABS: BASE EXCESS 12.6 mEq/L (-3 to +3); BICARBONATE 42.3 mEq/L (22-26); CARBOXY HGB 1.7 % (0-5); METHEMOGLOBIN 1.3 % (0-1.5)
[2017-04-11 01:06] LABS: COMMENTS - BLOOD GASES C+A+; DEVICE 840 VENT; FI02 40 %; MODE SPONT NIPPV; PCO2 90 mm Hg (35-45); PEEP 10 CM/H20; PO2 67 mm Hg (80-100); PRES. SUPPORT 20 CM/H2O; SITE LR; TOTAL RESP RATE 20 resp/min; pH 7.28 (7.35-7.45)
[2017-04-11 08:39] LABS: BASE EXCESS 15.4 mEq/L (-3 to +3); BICARBONATE 41.3 mEq/L (22-26); CARBOXY HGB 1.6 % (0-5); METHEMOGLOBIN 1.5 % (0-1.5)
[2017-04-11 08:40] LABS: COMMENTS - BLOOD GASES A+C+; DEVICE PB 840 NIPPV; FI02 30 %; MODE SPONT; PCO2 58 mm Hg (35-45); PEEP 10 CM/H20; PO2 53 mm Hg (80-100); PRES. SUPPORT 20 CM/H2O; SITE LR; TOTAL RESP RATE 23 resp/min; pH 7.46 (7.35-7.45)
[2017-04-11 09:00] LABS: EOSINOPHIL (%) 0 % (0-5); HEMATOCRIT 30.3 % (38.0-50.0); IMMATURE GRANULOCYTE (%) 1.2 % (0.0-0.7); IMMATURE GRANULOCYTE COUNT 0.1 K/uL; INSTRUMENT ABS NEUTROPHIL CT 8.6 K/uL; LYMPHOCYTE COUNT 0.5 K/uL (1.0-2.8); MCH 26.3 PG (29.0-34.0); MCV 87.6 FL (86-99); MEAN PLAT.VOLUME 11.6 uM^3 (9.0-12.4); MONOCYTE (%) 5.3 % (3-12); MONOCYTE COUNT 0.5 K/uL (0-0.8); NEUTROPHIL (%) 88.8 % (45-76); NEUTROPHIL COUNT 8.6 K/uL (1.8-6.4); PLATELET COUNT 233 K/uL (156-360); RBC DIS.WIDTH-CV 17.6 % (11.8-14.6); RBC DIS.WIDTH-SD 56.4 % (39-53); RED BLOOD COUNT 3.46 M/uL (4.00-5.50); WHITE BLOOD COUNT 9.7 K/uL (4.1-10.2)
[2017-04-11 09:24] LABS: ANION GAP 6 MEQ/L (2-14); CHLORIDE 99 MEQ/L (99-109); GFR ESTIMATE (CALCULATED) > 59 mL/min/; GLUCOSE 126 mg/dL (70-99); MAGNESIUM 2.4 mg/dl (1.3-2.7); POTASSIUM 4.2 MEQ/L (3.7-5.4); SAMPLE HEMOLYSIS CHECK 0; SAMPLE ICTERIC CHECK 0; SAMPLE LIPEMIA CHECK 0; SODIUM 141 MEQ/L (136-147); UREA NITROGEN (BUN) 20 mg/dL (9-23)
[2017-04-11 14:53] LABS: POINT-OF-CARE METER ID UU14174217
[2017-04-12] VITALS (23 sets, daily range): BP systolic 98–165; BP diastolic 53–96
[2017-04-12 06:22] LABS: EOSINOPHIL (%) 0 % (0-5); IMMATURE GRANULOCYTE (%) 1.5 % (0.0-0.7); IMMATURE GRANULOCYTE COUNT 0.1 K/uL; INSTRUMENT ABS NEUTROPHIL CT 7.6 K/uL; LYMPHOCYTE COUNT 0.5 K/uL (1.0-2.8); MCH 25.1 PG (29.0-34.0); MCHC 27.9 G/DL (30.0-36.0); MCV 89.9 FL (86-99); MEAN PLAT.VOLUME 11.1 uM^3 (9.0-12.4); MONOCYTE (%) 6.2 % (3-12); MONOCYTE COUNT 0.5 K/uL (0-0.8); NEUTROPHIL (%) 86.7 % (45-76); NEUTROPHIL COUNT 7.6 K/uL (1.8-6.4); PLATELET COUNT 215 K/uL (156-360); RBC DIS.WIDTH-CV 17.8 % (11.8-14.6); RBC DIS.WIDTH-SD 58.7 % (39-53); RED BLOOD COUNT 3.78 M/uL (4.00-5.50); WHITE BLOOD COUNT 8.8 K/uL (4.1-10.2)
[2017-04-12 06:50] LABS: ANION GAP 7 MEQ/L (2-14); CHLORIDE 100 MEQ/L (99-109); GFR ESTIMATE (CALCULATED) > 59 mL/min/; GLUCOSE 113 mg/dL (70-99); MAGNESIUM 2.4 mg/dl (1.3-2.7); POTASSIUM 4.2 MEQ/L (3.7-5.4); SAMPLE HEMOLYSIS CHECK 0; SAMPLE ICTERIC CHECK 0; SAMPLE LIPEMIA CHECK 0; SODIUM 145 MEQ/L (136-147); UREA NITROGEN (BUN) 25 mg/dL (9-23)
[2017-04-12 08:17] LABS: BASE EXCESS 13.2 mEq/L (-3 to +3); BICARBONATE 42.3 mEq/L (22-26); CARBOXY HGB 1.4 % (0-5); METHEMOGLOBIN 1.2 % (0-1.5)
[2017-04-12 08:18] LABS: COMMENTS - BLOOD GASES C+A-N/A; DEVICE HHFNC; FI02 60 %; O2 FLOW 45 L/MIN; PCO2 86 mm Hg (35-45); PO2 73 mm Hg (80-100); SITE RR; TOTAL RESP RATE 26 resp/min
[2017-04-12] MEDS ORDERED: PRAVACHOL40 MG PO (09:40)
[2017-04-12 13:13] LABS: BICARBONATE 44.4 mEq/L (22-26); CARBOXY HGB 1.5 % (0-5); METHEMOGLOBIN 1.5 % (0-1.5)
[2017-04-12 13:14] LABS: COMMENTS - BLOOD GASES C+A-N/A; O2 FLOW 10 L/MIN; PCO2 70 mm Hg (35-45); PO2 54 mm Hg (80-100); SITE RR; TOTAL RESP RATE 20 resp/min; pH 7.41 (7.35-7.45)
[2017-04-12 13:15] LABS: DEVICE BIPAP 15/8
[2017-04-12 21:11] LABS: BASE EXCESS 15.4 mEq/L (-3 to +3); BICARBONATE 42.5 mEq/L (22-26); CARBOXY HGB 1.8 % (0-5); COMMENTS - BLOOD GASES C+; DEVICE BIPAP; METHEMOGLOBIN 1.2 % (0-1.5); O2 FLOW 8 L/MIN; PCO2 67 mm Hg (35-45); PO2 57 mm Hg (80-100); SITE RR; pH 7.41 (7.35-7.45)
[2017-04-12 21:12] LABS: PEEP 8 CM/H20; PRES. SUPPORT 15 CM/H2O; TOTAL RESP RATE 20 resp/min
[2017-04-13] VITALS (22 sets, daily range): BP systolic 96–182; BP diastolic 55–122
[2017-04-13 07:22] LABS: EOSINOPHIL (%) 0 % (0-5); HEMATOCRIT 32.8 % (38.0-50.0); IMMATURE GRANULOCYTE (%) 0.7 % (0.0-0.7); IMMATURE GRANULOCYTE COUNT 0.1 K/uL; INSTRUMENT ABS NEUTROPHIL CT 7.1 K/uL; LYMPHOCYTE COUNT 0.4 K/uL (1.0-2.8); MCH 25.9 PG (29.0-34.0); MCHC 29.9 G/DL (30.0-36.0); MCV 86.8 FL (86-99); MONOCYTE (%) 6.8 % (3-12); MONOCYTE COUNT 0.6 K/uL (0-0.8); NEUTROPHIL (%) 87.8 % (45-76); NEUTROPHIL COUNT 7.1 K/uL (1.8-6.4); PLATELET COUNT 213 K/uL (156-360); RBC DIS.WIDTH-CV 17.9 % (11.8-14.6); RBC DIS.WIDTH-SD 56.7 % (39-53); RED BLOOD COUNT 3.78 M/uL (4.00-5.50); WHITE BLOOD COUNT 8.1 K/uL (4.1-10.2)
[2017-04-13 07:56] LABS: ANION GAP 7 MEQ/L (2-14); CHLORIDE 96 MEQ/L (99-109); GFR ESTIMATE (CALCULATED) > 59 mL/min/; GLUCOSE 133 mg/dL (70-99); MAGNESIUM 2.3 mg/dl (1.3-2.7); POTASSIUM 3.7 MEQ/L (3.7-5.4); SAMPLE HEMOLYSIS CHECK 0; SAMPLE ICTERIC CHECK 0; SAMPLE LIPEMIA CHECK 0; SODIUM 143 MEQ/L (136-147); UREA NITROGEN (BUN) 21 mg/dL (9-23)
[2017-04-13 11:21] LABS: BASE EXCESS 18.2 mEq/L (-3 to +3); BICARBONATE 44.8 mEq/L (22-26); CARBOXY HGB 1.8 % (0-5); METHEMOGLOBIN 1.4 % (0-1.5); PCO2 63 mm Hg (35-45); PO2 49 mm Hg (80-100); pH 7.46 (7.35-7.45)
[2017-04-13 11:22] LABS: COMMENTS - BLOOD GASES NEG A+C+; CONTINUOUS POS AIRWAY PRESSURE 20 cm H2O; DEVICE BIPAP; O2 FLOW 12 L/MIN; PEEP 15 CM/H20; SITE LR; TOTAL RESP RATE 12 resp/min
[2017-04-13 13:10] LABS: BASE EXCESS 19.6 mEq/L (-3 to +3); CARBOXY HGB 1.4 % (0-5); METHEMOGLOBIN 1.5 % (0-1.5)
[2017-04-13 13:11] LABS: COMMENTS - BLOOD GASES A+C+; DEVICE 840 PB; FI02 80 %; MECHANICAL RATE 22 resp/min; MODE AC; PCO2 48 mm Hg (35-45); PO2 111 mm Hg (80-100); SITE RR; TIDAL VOLUME 400 ML; TOTAL RESP RATE 22 resp/min; pH 7.57 (7.35-7.45)
[2017-04-13 13:12] LABS: PEEP 15 CM/H20
[2017-04-14] VITALS (33 sets, daily range): BP systolic 68–176; BP diastolic 42–120
[2017-04-14 06:05] LABS: EOSINOPHIL (%) 0.1 % (0-5); HEMATOCRIT 30.7 % (38.0-50.0); IMMATURE GRANULOCYTE (%) 0.5 % (0.0-0.7); IMMATURE GRANULOCYTE COUNT 0.1 K/uL; INSTRUMENT ABS NEUTROPHIL CT 7.5 K/uL; LYMPHOCYTE COUNT 0.9 K/uL (1.0-2.8); MCH 26.2 PG (29.0-34.0); MCHC 31.3 G/DL (30.0-36.0); MCV 83.7 FL (86-99); MEAN PLAT.VOLUME 12.3 uM^3 (9.0-12.4); MONOCYTE (%) 10.5 % (3-12); NEUTROPHIL (%) 79.2 % (45-76); NEUTROPHIL COUNT 7.5 K/uL (1.8-6.4); PLATELET COUNT 225 K/uL (156-360); RBC DIS.WIDTH-CV 18.6 % (11.8-14.6); RBC DIS.WIDTH-SD 56.2 % (39-53); RED BLOOD COUNT 3.67 M/uL (4.00-5.50); WHITE BLOOD COUNT 9.4 K/uL (4.1-10.2)
[2017-04-14 06:34] LABS: ANION GAP 9 MEQ/L (2-14); CHLORIDE 95 MEQ/L (99-109); GFR ESTIMATE (CALCULATED) > 59 mL/min/; GLUCOSE 121 mg/dL (70-99); MAGNESIUM 2.1 mg/dl (1.3-2.7); SAMPLE HEMOLYSIS CHECK 0; SAMPLE ICTERIC CHECK 0; SAMPLE LIPEMIA CHECK 0; SODIUM 139 MEQ/L (136-147); UREA NITROGEN (BUN) 19 mg/dL (9-23)
[2017-04-14 12:41] LABS: POINT-OF-CARE METER ID UU13113731
[2017-04-14 15:27] LABS: COMMENTS - BLOOD GASES A+C+; DEVICE VENT; FI02 40 %; MECHANICAL RATE 14 resp/min; MODE AC; PCO2 48 mm Hg (35-45); PEEP 14 CM/H20; PO2 74 mm Hg (80-100); SITE LR; TIDAL VOLUME 470 ML; TOTAL RESP RATE 14 resp/min; pH 7.47 (7.35-7.45)
[2017-04-14 15:28] LABS: BICARBONATE 34.9 mEq/L (22-26); HEMOGLOBIN 9.5 (12.5-16.6); METHEMOGLOBIN 1.6 % (0-1.5); O2 SATURATION (CALCULATED) 94.5 % (95-99)
[2017-04-14 17:50] LABS: POINT-OF-CARE METER ID UU13113731
[2017-04-15] VITALS (18 sets, daily range): BP systolic 93–129; BP diastolic 55–69
[2017-04-15 00:25] LABS: POINT-OF-CARE METER ID UU13113731
[2017-04-15 05:31] LABS: POINT-OF-CARE METER ID UU14174217
[2017-04-15 07:46] LABS: EOSINOPHIL (%) 0 % (0-5); HEMATOCRIT 32.1 % (38.0-50.0); IMMATURE GRANULOCYTE (%) 1.2 % (0.0-0.7); IMMATURE GRANULOCYTE COUNT 0.1 K/uL; INSTRUMENT ABS NEUTROPHIL CT 10.2 K/uL; LYMPHOCYTE COUNT 0.3 K/uL (1.0-2.8); MCH 26.3 PG (29.0-34.0); MCHC 31.5 G/DL (30.0-36.0); MCV 83.6 FL (86-99); MEAN PLAT.VOLUME 12.8 uM^3 (9.0-12.4); MONOCYTE (%) 4.2 % (3-12); MONOCYTE COUNT 0.5 K/uL (0-0.8); NEUTROPHIL (%) 91.5 % (45-76); NEUTROPHIL COUNT 10.2 K/uL (1.8-6.4); PLATELET COUNT 236 K/uL (156-360); RBC DIS.WIDTH-CV 19.5 % (11.8-14.6); RBC DIS.WIDTH-SD 58.4 % (39-53); RED BLOOD COUNT 3.84 M/uL (4.00-5.50); WHITE BLOOD COUNT 11.1 K/uL (4.1-10.2)
[2017-04-15 08:14] LABS: ANION GAP 6 MEQ/L (2-14); CHLORIDE 99 MEQ/L (99-109); GFR ESTIMATE (CALCULATED) > 59 mL/min/; GLUCOSE 130 mg/dL (70-99); SAMPLE HEMOLYSIS CHECK 0; SAMPLE ICTERIC CHECK 0; SAMPLE LIPEMIA CHECK 0; SODIUM 139 MEQ/L (136-147); UREA NITROGEN (BUN) 19 mg/dL (9-23)
[2017-04-15 12:10] LABS: POINT-OF-CARE METER ID UU14174217
[2017-04-16] VITALS (24 sets, daily range): BP systolic 86–131; BP diastolic 43–72
[2017-04-16 06:29] LABS: EOSINOPHIL (%) 0 % (0-5); IMMATURE GRANULOCYTE (%) 1.7 % (0.0-0.7); IMMATURE GRANULOCYTE COUNT 0.2 K/uL; INSTRUMENT ABS NEUTROPHIL CT 8.8 K/uL; LYMPHOCYTE COUNT 0.3 K/uL (1.0-2.8); MCHC 31.3 G/DL (30.0-36.0); MCV 83.1 FL (86-99); MEAN PLAT.VOLUME 11.6 uM^3 (9.0-12.4); MONOCYTE (%) 6.1 % (3-12); MONOCYTE COUNT 0.6 K/uL (0-0.8); NEUTROPHIL (%) 89.4 % (45-76); NEUTROPHIL COUNT 8.8 K/uL (1.8-6.4); PLATELET COUNT 186 K/uL (156-360); RBC DIS.WIDTH-CV 19.5 % (11.8-14.6); RBC DIS.WIDTH-SD 58.1 % (39-53); RED BLOOD COUNT 3.61 M/uL (4.00-5.50); WHITE BLOOD COUNT 9.8 K/uL (4.1-10.2)
[2017-04-16 06:51] LABS: ANION GAP 8 MEQ/L (2-14); CHLORIDE 100 MEQ/L (99-109); GFR ESTIMATE (CALCULATED) > 59 mL/min/; GLUCOSE 190 mg/dL (70-99); MAGNESIUM 2.1 mg/dl (1.3-2.7); POTASSIUM 3.9 MEQ/L (3.7-5.4); SAMPLE HEMOLYSIS CHECK 0; SAMPLE ICTERIC CHECK 0; SAMPLE LIPEMIA CHECK 0; SODIUM 139 MEQ/L (136-147); UREA NITROGEN (BUN) 20 mg/dL (9-23)
[2017-04-17] VITALS (24 sets, daily range): BP systolic 91–137; BP diastolic 48–84
[2017-04-17 07:52] LABS: ANION GAP 7 MEQ/L (2-14); CHLORIDE 99 MEQ/L (99-109); GFR ESTIMATE (CALCULATED) > 59 mL/min/; GLUCOSE 269 mg/dL (70-99); MAGNESIUM 2.1 mg/dl (1.3-2.7); POTASSIUM 4.4 MEQ/L (3.7-5.4); SAMPLE HEMOLYSIS CHECK 0; SAMPLE ICTERIC CHECK 0; SAMPLE LIPEMIA CHECK 0; SODIUM 139 MEQ/L (136-147); UREA NITROGEN (BUN) 20 mg/dL (9-23)
[2017-04-17 08:05] LABS: EOSINOPHIL (%) 0 % (0-5); HEMATOCRIT 30.1 % (38.0-50.0); IMMATURE GRANULOCYTE (%) 2.7 % (0.0-0.7); IMMATURE GRANULOCYTE COUNT 0.2 K/uL; LYMPHOCYTE COUNT 0.2 K/uL (1.0-2.8); MCHC 30.6 G/DL (30.0-36.0); MONOCYTE (%) 4.3 % (3-12); MONOCYTE COUNT 0.3 K/uL (0-0.8); NEUTROPHIL (%) 89.9 % (45-76); RBC DIS.WIDTH-CV 20.1 % (11.8-14.6); RED BLOOD COUNT 3.54 M/uL (4.00-5.50); WHITE BLOOD COUNT 7.8 K/uL (4.1-10.2)
[2017-04-17 08:06] LABS: MEAN PLAT.VOLUME 12.4 uM^3 (9.0-12.4); PLAT.SUFFICIENCY DECREASED; PLATELET COUNT 152 K/uL (156-360)
[2017-04-18] VITALS (24 sets, daily range): BP systolic 95–172; BP diastolic 46–132
[2017-04-18 05:32] LABS: POINT-OF-CARE METER ID UU14174217
[2017-04-18 06:19] LABS: EOSINOPHIL (%) 0 % (0-5); HEMATOCRIT 32.5 % (38.0-50.0); IMMATURE GRANULOCYTE (%) 2.9 % (0.0-0.7); IMMATURE GRANULOCYTE COUNT 0.3 K/uL; INSTRUMENT ABS NEUTROPHIL CT 9.8 K/uL; LYMPHOCYTE COUNT 0.3 K/uL (1.0-2.8); MCH 25.6 PG (29.0-34.0); MCHC 29.5 G/DL (30.0-36.0); MCV 86.7 FL (86-99); MEAN PLAT.VOLUME 11.8 uM^3 (9.0-12.4); MONOCYTE (%) 4.2 % (3-12); MONOCYTE COUNT 0.5 K/uL (0-0.8); NEUTROPHIL (%) 90.3 % (45-76); NEUTROPHIL COUNT 9.8 K/uL (1.8-6.4); PLATELET COUNT 191 K/uL (156-360); RBC DIS.WIDTH-CV 20.3 % (11.8-14.6); RBC DIS.WIDTH-SD 62.8 % (39-53); RED BLOOD COUNT 3.75 M/uL (4.00-5.50); WHITE BLOOD COUNT 10.9 K/uL (4.1-10.2)
[2017-04-18 07:00] LABS: ANION GAP 5 MEQ/L (2-14); CHLORIDE 97 MEQ/L (99-109); GFR ESTIMATE (CALCULATED) > 59 mL/min/; GLUCOSE 213 mg/dL (70-99); MAGNESIUM 2.4 mg/dl (1.3-2.7); POTASSIUM 4.4 MEQ/L (3.7-5.4); SAMPLE HEMOLYSIS CHECK 0; SAMPLE ICTERIC CHECK 0; SAMPLE LIPEMIA CHECK 0; SODIUM 137 MEQ/L (136-147); UREA NITROGEN (BUN) 23 mg/dL (9-23)
[2017-04-18 11:30] LABS: POINT-OF-CARE METER ID UU14174217
[2017-04-18 17:00] LABS: BASE EXCESS 11.8 mEq/L (-3 to +3); BICARBONATE 34.8 mEq/L (22-26); CARBOXY HGB 1.4 % (0-5); METHEMOGLOBIN 1.3 % (0-1.5); PO2 62 mm Hg (80-100)
[2017-04-18 17:01] LABS: COMMENTS - BLOOD GASES A+C+; DEVICE 840; FI02 40 %; INSPIRATION TIME 0.78 seconds; MECHANICAL RATE 14 resp/min; MODE AC/PC; PCO2 38 mm Hg (35-45); PEEP 5 CM/H20; SITE LR; TOTAL RESP RATE 14 resp/min
[2017-04-18 17:03] LABS: pH 7.57 (7.35-7.45)
[2017-04-18 19:46] LABS: BASE EXCESS 14.9 mEq/L (-3 to +3); BICARBONATE 40.8 mEq/L (22-26); CARBOXY HGB 3.5 % (0-5); COMMENTS - BLOOD GASES C+; DEVICE VENT; FI02 50 %; INSPIRATION TIME 0.78 seconds; MECHANICAL RATE 14 resp/min; METHEMOGLOBIN 0.5 % (0-1.5); MODE AC/PC; PCO2 60 mm Hg (35-45); PEEP 5 CM/H20; PO2 65 mm Hg (80-100); PRESSURE CONTROL VENTILATION 18 CM H20; SITE LR; TOTAL RESP RATE 16 resp/min; pH 7.44 (7.35-7.45)
[2017-04-19] VITALS (24 sets, daily range): BP systolic 92–150; BP diastolic 51–80
[2017-04-19 07:13] LABS: EOSINOPHIL (%) 0 % (0-5); HEMATOCRIT 29.3 % (38.0-50.0); IMMATURE GRANULOCYTE COUNT 0.2 K/uL; INSTRUMENT ABS NEUTROPHIL CT 8.8 K/uL; LYMPHOCYTE COUNT 0.3 K/uL (1.0-2.8); MCH 26.7 PG (29.0-34.0); MCHC 31.4 G/DL (30.0-36.0); MCV 85.2 FL (86-99); MEAN PLAT.VOLUME 12.7 uM^3 (9.0-12.4); MONOCYTE (%) 5.1 % (3-12); MONOCYTE COUNT 0.5 K/uL (0-0.8); NEUTROPHIL (%) 89.5 % (45-76); NEUTROPHIL COUNT 8.8 K/uL (1.8-6.4); PLATELET COUNT 193 K/uL (156-360); RBC DIS.WIDTH-CV 20.5 % (11.8-14.6); RBC DIS.WIDTH-SD 62.9 % (39-53); RED BLOOD COUNT 3.44 M/uL (4.00-5.50); WHITE BLOOD COUNT 9.8 K/uL (4.1-10.2)
[2017-04-19 07:49] LABS: ANION GAP 9 MEQ/L (2-14); CHLORIDE 96 MEQ/L (99-109); GFR ESTIMATE (CALCULATED) > 59 mL/min/; GLUCOSE 182 mg/dL (70-99); MAGNESIUM 2.3 mg/dl (1.3-2.7); POTASSIUM 4.1 MEQ/L (3.7-5.4); SAMPLE HEMOLYSIS CHECK 0; SAMPLE ICTERIC CHECK 0; SAMPLE LIPEMIA CHECK 0; SODIUM 140 MEQ/L (136-147); UREA NITROGEN (BUN) 22 mg/dL (9-23)
[2017-04-20] VITALS (18 sets, daily range): BP systolic 91–125; BP diastolic 39–76
[2017-04-20 01:01] LABS: POINT-OF-CARE METER ID UU13113803
[2017-04-20 07:13] LABS: EOSINOPHIL (%) 0 % (0-5); HEMATOCRIT 30.6 % (38.0-50.0); IMMATURE GRANULOCYTE (%) 1.5 % (0.0-0.7); IMMATURE GRANULOCYTE COUNT 0.1 K/uL; INSTRUMENT ABS NEUTROPHIL CT 8.5 K/uL; LYMPHOCYTE COUNT 0.2 K/uL (1.0-2.8); MCH 26.2 PG (29.0-34.0); MCV 84.3 FL (86-99); MEAN PLAT.VOLUME 12.4 uM^3 (9.0-12.4); MONOCYTE (%) 5.9 % (3-12); MONOCYTE COUNT 0.6 K/uL (0-0.8); NEUTROPHIL (%) 90.4 % (45-76); NEUTROPHIL COUNT 8.5 K/uL (1.8-6.4); PLATELET COUNT 201 K/uL (156-360); RBC DIS.WIDTH-CV 20.3 % (11.8-14.6); RBC DIS.WIDTH-SD 62.5 % (39-53); RED BLOOD COUNT 3.63 M/uL (4.00-5.50); WHITE BLOOD COUNT 9.4 K/uL (4.1-10.2)
[2017-04-20 07:31] LABS: ANION GAP 10 MEQ/L (2-14); CHLORIDE 98 MEQ/L (99-109); GFR ESTIMATE (CALCULATED) > 59 mL/min/; GLUCOSE 168 mg/dL (70-99); MAGNESIUM 2.5 mg/dl (1.3-2.7); POTASSIUM 3.6 MEQ/L (3.7-5.4); SAMPLE HEMOLYSIS CHECK 0; SAMPLE ICTERIC CHECK 0; SAMPLE LIPEMIA CHECK 0; SODIUM 140 MEQ/L (136-147); UREA NITROGEN (BUN) 20 mg/dL (9-23)
[2017-04-20 22:14] LABS: CHLORIDE 101 mEq/L (99-109); POTASSIUM 3.7 mEq/L (3.7-5.4); SODIUM 139 mEq/L (136-147)
[2017-04-20 22:15] LABS: MAGNESIUM 2.5 mg/dL (1.3-2.7)
[2017-04-20 22:16] LABS: GLUCOSE 188 mg/dL (70-99)
[2017-04-20 22:17] LABS: ANION GAP 10 MEQ/L (2-14)
[2017-04-20 22:21] LABS: UREA NITROGEN (BUN) 20 mg/dL (9-23)
[2017-04-20 23:34] LABS: GFR ESTIMATE (CALCULATED) > 59 mL/min/; SAMPLE HEMOLYSIS CHECK 0; SAMPLE ICTERIC CHECK 0; SAMPLE LIPEMIA CHECK 0
[2017-04-21] VITALS (24 sets, daily range): BP systolic 92–154; BP diastolic 51–87
[2017-04-21 06:37] LABS: POINT-OF-CARE METER ID UU14174217
[2017-04-21 07:58] LABS: EOSINOPHIL (%) 0 % (0-5); HEMATOCRIT 32.3 % (38.0-50.0); IMMATURE GRANULOCYTE (%) 1.1 % (0.0-0.7); IMMATURE GRANULOCYTE COUNT 0.2 K/uL; INSTRUMENT ABS NEUTROPHIL CT 13.6 K/uL; LYMPHOCYTE COUNT 0.3 K/uL (1.0-2.8); MCH 27.1 PG (29.0-34.0); MCHC 32.2 G/DL (30.0-36.0); MCV 84.1 FL (86-99); MONOCYTE (%) 5.6 % (3-12); MONOCYTE COUNT 0.8 K/uL (0-0.8); NEUTROPHIL (%) 91.1 % (45-76); NEUTROPHIL COUNT 13.6 K/uL (1.8-6.4); RBC DIS.WIDTH-SD 63.3 % (39-53); RED BLOOD COUNT 3.84 M/uL (4.00-5.50)
[2017-04-21 08:03] LABS: WHITE BLOOD COUNT 14.9 K/uL (4.1-10.2)
[2017-04-21 08:15] LABS: MEAN PLAT.VOLUME 13.2 uM^3 (9.0-12.4); PLAT.SUFFICIENCY ADEQUATE; PLATELET COUNT 164 K/uL (156-360)
[2017-04-21 08:23] LABS: ANION GAP 12 MEQ/L (2-14); CHLORIDE 99 MEQ/L (99-109); GFR ESTIMATE (CALCULATED) > 59 mL/min/; GLUCOSE 133 mg/dL (70-99); MAGNESIUM 2.4 mg/dl (1.3-2.7); POTASSIUM 3.5 MEQ/L (3.7-5.4); SAMPLE HEMOLYSIS CHECK 0; SAMPLE ICTERIC CHECK 0; SAMPLE LIPEMIA CHECK 0; SODIUM 141 MEQ/L (136-147); UREA NITROGEN (BUN) 20 mg/dL (9-23)
[2017-04-21 12:07] LABS: POINT-OF-CARE METER ID UU14174217
[2017-04-21 18:12] LABS: POINT-OF-CARE METER ID UU14174217
[2017-04-21 23:59] LABS: POINT-OF-CARE METER ID UU14174217
[2017-04-22] VITALS (19 sets, daily range): BP systolic 100–135; BP diastolic 66–92
[2017-04-22 05:06] LABS: EOSINOPHIL (%) 0 % (0-5); HEMATOCRIT 34.1 % (38.0-50.0); IMMATURE GRANULOCYTE (%) 2.2 % (0.0-0.7); IMMATURE GRANULOCYTE COUNT 0.4 K/uL; INSTRUMENT ABS NEUTROPHIL CT 15.9 K/uL; LYMPHOCYTE COUNT 0.2 K/uL (1.0-2.8); MCH 25.9 PG (29.0-34.0); MCHC 30.5 G/DL (30.0-36.0); MEAN PLAT.VOLUME 12.2 uM^3 (9.0-12.4); MONOCYTE (%) 3.3 % (3-12); MONOCYTE COUNT 0.6 K/uL (0-0.8); NEUTROPHIL (%) 93.5 % (45-76); NEUTROPHIL COUNT 15.9 K/uL (1.8-6.4); PLATELET COUNT 176 K/uL (156-360); RED BLOOD COUNT 4.01 M/uL (4.00-5.50); WHITE BLOOD COUNT 17.1 K/uL (4.1-10.2)
[2017-04-22 05:16] LABS: CHLORIDE 96 mEq/L (99-109); POTASSIUM 3.1 mEq/L (3.7-5.4); SODIUM 142 mEq/L (136-147)
[2017-04-22 05:17] LABS: MAGNESIUM 2.2 mg/dL (1.3-2.7)
[2017-04-22 05:20] LABS: ANION GAP 12 MEQ/L (2-14)
[2017-04-22 05:22] LABS: GFR ESTIMATE (CALCULATED) > 59 mL/min/
[2017-04-22 05:23] LABS: UREA NITROGEN (BUN) 24 mg/dL (9-23)
[2017-04-22 05:26] LABS: GLUCOSE 266 mg/dL (70-99)
[2017-04-22 08:29] LABS: BASE EXCESS 15.7 mEq/L (-3 to +3); BICARBONATE 42.8 mEq/L (22-26); CARBOXY HGB 1.8 % (0-5); METHEMOGLOBIN 1.5 % (0-1.5); PO2 74 mm Hg (80-100); pH 7.42 (7.35-7.45)
[2017-04-22 08:30] LABS: COMMENTS - BLOOD GASES +C; CONTINUOUS POS AIRWAY PRESSURE 5 cm H2O; DEVICE PB840; FI02 40 %; MODE TUBE COMP.; PCO2 66 mm Hg (35-45); SITE LR +A; TOTAL RESP RATE 19 resp/min
[2017-04-22 18:00] LABS: POINT-OF-CARE METER ID UU14162636; POINT-OF-CARE USER ID 606021424
[2017-04-22 23:36] LABS: POINT-OF-CARE METER ID UU14162636
[2017-04-23] VITALS: BP 109/70
[2017-04-23 04:00] VITALS: BP 143/96
[2017-04-23 05:42] LABS: EOSINOPHIL (%) 0 % (0-5); HEMATOCRIT 34.4 % (38.0-50.0); IMMATURE GRANULOCYTE (%) 1.1 % (0.0-0.7); IMMATURE GRANULOCYTE COUNT 0.2 K/uL; INSTRUMENT ABS NEUTROPHIL CT 13.7 K/uL; LYMPHOCYTE COUNT 0.2 K/uL (1.0-2.8); MCH 26.3 PG (29.0-34.0); MCHC 30.2 G/DL (30.0-36.0); MCV 86.9 FL (86-99); MEAN PLAT.VOLUME 11.6 uM^3 (9.0-12.4); MONOCYTE (%) 3.9 % (3-12); MONOCYTE COUNT 0.6 K/uL (0-0.8); NEUTROPHIL (%) 93.5 % (45-76); NEUTROPHIL COUNT 13.7 K/uL (1.8-6.4); PLATELET COUNT 159 K/uL (156-360); RBC DIS.WIDTH-CV 19.4 % (11.8-14.6); RED BLOOD COUNT 3.96 M/uL (4.00-5.50); WHITE BLOOD COUNT 14.7 K/uL (4.1-10.2)
[2017-04-23 07:00] LABS: ANION GAP 5 MEQ/L (2-14); CHLORIDE 94 MEQ/L (99-109); GFR ESTIMATE (CALCULATED) > 59 mL/min/; GLUCOSE 148 mg/dL (70-99); MAGNESIUM 2.6 mg/dl (1.3-2.7); SAMPLE HEMOLYSIS CHECK 0; SAMPLE ICTERIC CHECK 0; SAMPLE LIPEMIA CHECK 0; SODIUM 139 MEQ/L (136-147); UREA NITROGEN (BUN) 23 mg/dL (9-23); VANCOMYCIN, TROUGH 18.5 MCG/ML (10-20)
[2017-04-23 07:05] LABS: POTASSIUM 3.8 MEQ/L (3.7-5.4)
[2017-04-23 08:00] VITALS: BP 165/96
[2017-04-23 12:00] VITALS: BP 151/93
[2017-04-23 12:50] LABS: POINT-OF-CARE METER ID UU13113731
[2017-04-23 16:00] VITALS: BP 147/80
[2017-04-23 20:00] VITALS: BP 152/102
[2017-04-23 21:27] LABS: POINT-OF-CARE METER ID UU14162636
[2017-04-24] VITALS (9 sets, daily range): BP systolic 109–156; BP diastolic 69–92
[2017-04-24 07:52] LABS: EOSINOPHIL (%) 0 % (0-5); HEMATOCRIT 33.8 % (38.0-50.0); IMMATURE GRANULOCYTE (%) 1.3 % (0.0-0.7); IMMATURE GRANULOCYTE COUNT 0.2 K/uL; INSTRUMENT ABS NEUTROPHIL CT 13.2 K/uL; LYMPHOCYTE COUNT 0.3 K/uL (1.0-2.8); MCH 26.8 PG (29.0-34.0); MCHC 31.1 G/DL (30.0-36.0); MCV 86.2 FL (86-99); MEAN PLAT.VOLUME 11.9 uM^3 (9.0-12.4); MONOCYTE (%) 4.2 % (3-12); MONOCYTE COUNT 0.6 K/uL (0-0.8); NEUTROPHIL (%) 92.4 % (45-76); NEUTROPHIL COUNT 13.2 K/uL (1.8-6.4); PLATELET COUNT 158 K/uL (156-360); RBC DIS.WIDTH-CV 19.8 % (11.8-14.6); RBC DIS.WIDTH-SD 61.3 % (39-53); RED BLOOD COUNT 3.92 M/uL (4.00-5.50); WHITE BLOOD COUNT 14.3 K/uL (4.1-10.2)
[2017-04-24 08:25] LABS: ANION GAP 9 MEQ/L (2-14); CHLORIDE 97 MEQ/L (99-109); GFR ESTIMATE (CALCULATED) > 59 mL/min/; GLUCOSE 164 mg/dL (70-99); MAGNESIUM 2.4 mg/dl (1.3-2.7); POTASSIUM 3.6 MEQ/L (3.7-5.4); SAMPLE HEMOLYSIS CHECK 0; SAMPLE ICTERIC CHECK 0; SAMPLE LIPEMIA CHECK 0; SODIUM 142 MEQ/L (136-147); UREA NITROGEN (BUN) 22 mg/dL (9-23)
[2017-04-24 13:07] LABS: POINT-OF-CARE METER ID UU13113803
[2017-04-24 21:28] LABS: POINT-OF-CARE METER ID UU14174225
[2017-04-25 02:52] LABS: C DIFF TOXIN POSITIVE (NEGATIVE)
[2017-04-25 02:58] LABS: PROBE CHECK PASS
[2017-04-25 05:55] LABS: EOSINOPHIL (%) 0.1 % (0-5); HEMATOCRIT 32.6 % (38.0-50.0); IMMATURE GRANULOCYTE (%) 0.9 % (0.0-0.7); IMMATURE GRANULOCYTE COUNT 0.1 K/uL; INSTRUMENT ABS NEUTROPHIL CT 9.5 K/uL; LYMPHOCYTE COUNT 0.5 K/uL (1.0-2.8); MCH 26.8 PG (29.0-34.0); MCHC 31.3 G/DL (30.0-36.0); MCV 85.8 FL (86-99); MEAN PLAT.VOLUME 11.4 uM^3 (9.0-12.4); MONOCYTE (%) 5.2 % (3-12); MONOCYTE COUNT 0.6 K/uL (0-0.8); NEUTROPHIL (%) 89.5 % (45-76); NEUTROPHIL COUNT 9.5 K/uL (1.8-6.4); PLATELET COUNT 142 K/uL (156-360); RBC DIS.WIDTH-CV 19.7 % (11.8-14.6); RBC DIS.WIDTH-SD 61.9 % (39-53); WHITE BLOOD COUNT 10.6 K/uL (4.1-10.2)
[2017-04-25 07:12] LABS: ANION GAP 7 MEQ/L (2-14); CHLORIDE 100 MEQ/L (99-109); GFR ESTIMATE (CALCULATED) > 59 mL/min/; GLUCOSE 165 mg/dL (70-99); MAGNESIUM 2.3 mg/dl (1.3-2.7); POTASSIUM 3.9 MEQ/L (3.7-5.4); SAMPLE HEMOLYSIS CHECK 0; SAMPLE ICTERIC CHECK 0; SAMPLE LIPEMIA CHECK 0; SODIUM 145 MEQ/L (136-147); UREA NITROGEN (BUN) 24 mg/dL (9-23)
[2017-04-25 07:30] VITALS: BP 139/90
[2017-04-25 11:48] VITALS: BP 142/86
[2017-04-25 15:59] VITALS: BP 134/80
[2017-04-25 20:23] VITALS: BP 130/81
[2017-04-26 00:06] VITALS: BP 146/91
[2017-04-26 07:37] VITALS: BP 159/60
[2017-04-26 09:43] LABS: EOSINOPHIL (%) 0.8 % (0-5); EOSINOPHIL COUNT 0.1 K/uL (0-0.3); HEMATOCRIT 34.7 % (38.0-50.0); IMMATURE GRANULOCYTE (%) 1.2 % (0.0-0.7); IMMATURE GRANULOCYTE COUNT 0.1 K/uL; INSTRUMENT ABS NEUTROPHIL CT 7.1 K/uL; LYMPHOCYTE COUNT 1.1 K/uL (1.0-2.8); MCH 27.1 PG (29.0-34.0); MCHC 31.4 G/DL (30.0-36.0); MCV 86.3 FL (86-99); MEAN PLAT.VOLUME 11.3 uM^3 (9.0-12.4); MONOCYTE (%) 7.5 % (3-12); MONOCYTE COUNT 0.7 K/uL (0-0.8); NEUTROPHIL (%) 78.7 % (45-76); NEUTROPHIL COUNT 7.1 K/uL (1.8-6.4); PLATELET COUNT 135 K/uL (156-360); RBC DIS.WIDTH-SD 62.4 % (39-53); RED BLOOD COUNT 4.02 M/uL (4.00-5.50); WHITE BLOOD COUNT 9.1 K/uL (4.1-10.2)
[2017-04-26 10:16] LABS: ANION GAP 9 MEQ/L (2-14); CHLORIDE 98 MEQ/L (99-109); GFR ESTIMATE (CALCULATED) > 59 mL/min/; MAGNESIUM 2.3 mg/dl (1.3-2.7); SAMPLE HEMOLYSIS CHECK 0; SAMPLE ICTERIC CHECK 0; SAMPLE LIPEMIA CHECK 0; SODIUM 141 MEQ/L (136-147); UREA NITROGEN (BUN) 23 mg/dL (9-23)
[2017-04-26 10:17] LABS: GLUCOSE 108 mg/dL (70-99)
[2017-04-26 11:03] VITALS: BP 129/84
[2017-04-26 15:12] VITALS: BP 121/74
[2017-04-26 19:49] VITALS: BP 137/79
[2017-04-26 23:43] VITALS: BP 116/59
[2017-04-27 03:21] VITALS: BP 129/66
[2017-04-27 06:09] LABS: EOSINOPHIL (%) 0.2 % (0-5); HEMATOCRIT 31.9 % (38.0-50.0); IMMATURE GRANULOCYTE (%) 1.2 % (0.0-0.7); IMMATURE GRANULOCYTE COUNT 0.1 K/uL; INSTRUMENT ABS NEUTROPHIL CT 8.3 K/uL; LYMPHOCYTE COUNT 0.7 K/uL (1.0-2.8); MCHC 31.3 G/DL (30.0-36.0); MONOCYTE (%) 5.7 % (3-12); MONOCYTE COUNT 0.6 K/uL (0-0.8); NEUTROPHIL (%) 85.6 % (45-76); NEUTROPHIL COUNT 8.3 K/uL (1.8-6.4); PLATELET COUNT 117 K/uL (156-360); RBC DIS.WIDTH-CV 20.2 % (11.8-14.6); RBC DIS.WIDTH-SD 63.3 % (39-53); RED BLOOD COUNT 3.71 M/uL (4.00-5.50); WHITE BLOOD COUNT 9.8 K/uL (4.1-10.2)
[2017-04-27 07:05] LABS: ANION GAP 8 MEQ/L (2-14); CHLORIDE 96 MEQ/L (99-109); GFR ESTIMATE (CALCULATED) > 59 mL/min/; GLUCOSE 207 mg/dL (70-99); MAGNESIUM 2.2 mg/dl (1.3-2.7); POTASSIUM 4.1 MEQ/L (3.7-5.4); SAMPLE HEMOLYSIS CHECK 0; SAMPLE ICTERIC CHECK 0; SAMPLE LIPEMIA CHECK 0; SODIUM 140 MEQ/L (136-147); UREA NITROGEN (BUN) 28 mg/dL (9-23)
[2017-04-27 07:31] VITALS: BP 115/80
[2017-04-27 11:12] VITALS: BP 113/63
[2017-04-27 11:12] LABS: POINT-OF-CARE METER ID UU14188625
[2017-04-27 15:21] VITALS: BP 127/82
[2017-04-27 16:24] LABS: POINT-OF-CARE METER ID UU14174225
[2017-04-27 19:44] VITALS: BP 109/54
[2017-04-28] VITALS (7 sets, daily range): BP systolic 106–132; BP diastolic 55–82
[2017-04-28 05:58] LABS: EOSINOPHIL (%) 0.1 % (0-5); HEMATOCRIT 32.8 % (38.0-50.0); IMMATURE GRANULOCYTE COUNT 0.1 K/uL; INSTRUMENT ABS NEUTROPHIL CT 8.8 K/uL; LYMPHOCYTE COUNT 0.5 K/uL (1.0-2.8); MCH 27.3 PG (29.0-34.0); MCHC 31.7 G/DL (30.0-36.0); MCV 86.1 FL (86-99); MEAN PLAT.VOLUME 12.1 uM^3 (9.0-12.4); MONOCYTE (%) 4.6 % (3-12); MONOCYTE COUNT 0.5 K/uL (0-0.8); NEUTROPHIL (%) 88.9 % (45-76); NEUTROPHIL COUNT 8.8 K/uL (1.8-6.4); PLATELET COUNT 120 K/uL (156-360); RBC DIS.WIDTH-CV 20.5 % (11.8-14.6); RED BLOOD COUNT 3.81 M/uL (4.00-5.50); WHITE BLOOD COUNT 9.9 K/uL (4.1-10.2)
[2017-04-28 06:44] LABS: ANION GAP 7 MEQ/L (2-14); CHLORIDE 100 MEQ/L (99-109); GFR ESTIMATE (CALCULATED) > 59 mL/min/; GLUCOSE 250 mg/dL (70-99); MAGNESIUM 2.1 mg/dl (1.3-2.7); POTASSIUM 4.2 MEQ/L (3.7-5.4); SAMPLE HEMOLYSIS CHECK 0; SAMPLE ICTERIC CHECK 0; SAMPLE LIPEMIA CHECK 0; SODIUM 141 MEQ/L (136-147); UREA NITROGEN (BUN) 30 mg/dL (9-23)
[2017-04-28 11:05] LABS: POINT-OF-CARE METER ID UU14174225
[2017-04-28 16:51] LABS: POINT-OF-CARE METER ID UU14174225
[2017-04-28 22:41] LABS: POINT-OF-CARE METER ID UU14174225
[2017-04-29 08:00] VITALS: BP 121/74
[2017-04-29 08:17] LABS: POINT-OF-CARE METER ID UU14174225
[2017-04-29 10:31] LABS: EOSINOPHIL (%) 0.3 % (0-5); HEMATOCRIT 35.3 % (38.0-50.0); IMMATURE GRANULOCYTE (%) 1.7 % (0.0-0.7); IMMATURE GRANULOCYTE COUNT 0.2 K/uL; LYMPHOCYTE COUNT 1.1 K/uL (1.0-2.8); MCH 26.3 PG (29.0-34.0); MCHC 30.3 G/DL (30.0-36.0); MCV 86.7 FL (86-99); MEAN PLAT.VOLUME 11.8 uM^3 (9.0-12.4); MONOCYTE (%) 7.4 % (3-12); MONOCYTE COUNT 0.8 K/uL (0-0.8); NEUTROPHIL (%) 80.7 % (45-76); PLATELET COUNT 121 K/uL (156-360); RBC DIS.WIDTH-CV 20.4 % (11.8-14.6); RBC DIS.WIDTH-SD 63.3 % (39-53); RED BLOOD COUNT 4.07 M/uL (4.00-5.50); WHITE BLOOD COUNT 11.1 K/uL (4.1-10.2)
[2017-04-29 10:45] LABS: CHLORIDE 99 mEq/L (99-109); POTASSIUM 4.2 mEq/L (3.7-5.4); SODIUM 141 mEq/L (136-147)
[2017-04-29 10:46] LABS: MAGNESIUM 2.2 mg/dL (1.3-2.7)
[2017-04-29 10:47] LABS: GLUCOSE 168 mg/dL (70-99)
[2017-04-29 10:48] LABS: ANION GAP 6 MEQ/L (2-14)
[2017-04-29 10:51] LABS: GFR ESTIMATE (CALCULATED) > 59 mL/min/
[2017-04-29 10:52] LABS: UREA NITROGEN (BUN) 29 mg/dL (9-23)
[2017-04-29 12:00] VITALS: BP 118/75
[2017-04-29] MEDS ORDERED: LOPRESSOR25 MG PO (12:32)
[2017-04-29] MEDS ORDERED: GUAIFENESI100 MG/5 M PO (12:34)
[2017-04-29] MEDS ORDERED: FAMOTIDINE20 MG PO (12:35)
[2017-04-29] MEDS ORDERED: NOVOLOG PE100 UNITS/ SC (12:36)
[2017-04-29] MEDS ORDERED: VANCOMYCIN HCL125 MG PO (12:37)
[2017-04-29] MEDS ORDERED: LORAZEPAM1 MG PO (12:39)
[2017-04-29] MEDS ORDERED: ARYMO ER15 MG PO (12:39)
[2017-04-29 16:18] VITALS: BP 108/66
[2017-04-29 17:54] LABS: POINT-OF-CARE METER ID UU14174225
== END 2017-04-29 18:38 | DRG 207 ==
LOC: EME → EDBD 02:53 → EME 02:53 → 5SOUTH 05:23 → 4WEST 05:23 → EDOF 05:23 → 4WEST 07:54 → 5SOUTH 04-24 14:52
PROVIDERS: Emergency Medicine; Family Medicine; Hospitalist; Internal Medicine; Internal Medicine Critical Care Medicine; Internal Medicine Nephrology; Surgery Surgical Critical Care
DX: J96.21 Acute and chronic respiratory failure with hypoxia (principal); A41.1 Sepsis due to other specified staphylococcus; J44.0 Chronic obstructive pulmonary disease with (acute) lower respiratory infection; J96.22 Acute and chronic respiratory failure with hypercapnia; J15.6 Pneumonia due to other Gram-negative bacteria; J44.9 Chronic obstructive pulmonary disease, unspecified; A04.7 Enterocolitis due to Clostridium difficile; E66.01 Morbid (severe) obesity due to excess calories; E87.2 Acidosis; J90 Pleural effusion, not elsewhere classified; R45.851 Suicidal ideations; E83.39 Other disorders of phosphorus metabolism; A41.9 Sepsis, unspecified organism; I50.9 Heart failure, unspecified; G47.33 Obstructive sleep apnea (adult) (pediatric); G40.909 Epilepsy, unspecified, not intractable, without status epilepticus; F31.9 Bipolar disorder, unspecified; G89.4 Chronic pain syndrome; F41.9 Anxiety disorder, unspecified; D64.9 Anemia, unspecified; M06.9 Rheumatoid arthritis, unspecified; R73.9 Hyperglycemia, unspecified; D63.8 Anemia in other chronic diseases classified elsewhere; B96.4 Proteus (mirabilis) (morganii) as the cause of diseases classified elsewhere; B96.89 Other specified bacterial agents as the cause of diseases classified elsewhere; D72.829 Elevated white blood cell count, unspecified; Z86.718 Personal history of other venous thrombosis and embolism; Z86.711 Personal history of pulmonary embolism; Z87.891 Personal history of nicotine dependence; J98.01 Acute bronchospasm; Z88.1 Allergy status to other antibiotic agents; Z88.0 Allergy status to penicillin; Z88.2 Allergy status to sulfonamides; G47.30 Sleep apnea, unspecified
CPT/HCPCS: 36600; 71010; 71250; 71275; 74000; 80048; 80048 91; 80053; 80076; 80200; 80202; 81003; 82533 91; 82607; 82746; 82803; 82948; 83605; 83690; 83735; 83880; 84100; 84484; 85025; 85027; 85610; 85730; 87040; 87070; 87077; 87081; 87186; 87205; 87449; 87493; 87641; 87801; 92610 GN; 93005; 93308; 94002; 94003; 94640; 94640 76; 94644; 94645; 94660; 94760; 94799; 97530 GO; 99202; 99281; 99285; J0461; J0692; J1120; J1200; J1630; J1650; J1815; J1940; J1956; J2060; J2250; J2270; J2704; J2765; J2920; J2930; J3010; J3260; J3370; J3480; J7030; J7050; J7120; J7644; S0028; S0030; S0073